=== PATIENT | female | born 1990 ===

== ENCOUNTER 2020-10-29 09:30 | Inpatient (IN) | payer BC ==
[2020-10-29] MEDS ORDERED: Lidocaine 1% 50 ML MDV INJECT PRN (11:47)
[2020-10-29] MEDS ORDERED: Nalbuphine 10 MG/1 ML Vial IVPUSH PRN (11:47)
[2020-10-29] MEDS ORDERED: Misoprostol 200 MCG Tab PO PRN (11:47)
[2020-10-29] MEDS ORDERED: Sodium Chloride 0.9% 2.5 ML Syringe FLUSH PRN (11:47)
[2020-10-29] MEDS ORDERED: Tranexamic Acid 1,000 MG in Sodium Chloride 0.9% 100 ML IV PRN (11:47)
[2020-10-29] MEDS ORDERED: Sodium Chloride 0.9% 10 ML SDV IV PRN (11:47)
[2020-10-29] MEDS ORDERED: Sodium Chloride 0.9% 10 ML Syringe FLUSH PRN (11:47)
[2020-10-29] MEDS ORDERED: Butorphanol 1 MG/ML SDV IVPUSH PRN (11:47)
[2020-10-29] MEDS ORDERED: Carboprost Tromethamine 250 MCG/1 ML Amp IM PRN (11:47)
[2020-10-29] MEDS ORDERED: Water For Irrigation,Sterile 1,000 ML Container IRR PRN (11:47)
[2020-10-29] MEDS ORDERED: Methylergonovine 0.2 MG/1 ML Amp IM PRN (11:47)
[2020-10-29] MEDS ORDERED: Lactated Ringers 1,000 ML IV SCH (12:00)
[2020-10-29] MEDS ORDERED: Oxytocin/0.9 % Sodium Chloride 30 UNIT/500 ML BAG IV SCH (12:00)
--- NOTE | 2020-10-29 14:46 | PCM.OPNOTE ---
- General Post-Op/Procedure Note Date of Surgery/Procedure: 10/29/20 Operative Procedure(s): /IP Findings: Viable male APGARs 8, 9 weight 6 lb 6 oz. Spontaneous delivery intact placenta with 3V cord. Meconium stained amniotic fluid Pre Op Diagnosis: 38/6 week IUP. Labor. Meconium stained amniotic fluid Post-Op Diagnosis: Same Primary Surgeon: Rosangela Lundy EBL in mLs: 300 Complications: none known Condition: Stable
[2020-10-29] MEDS ORDERED: Ibuprofen 400 MG Tab PO PRN (14:47)
[2020-10-29] MEDS ORDERED: Acetaminophen 500 MG Tab PO PRN ×2 (14:47)
[2020-10-29] MEDS ORDERED: Bisacodyl 10 MG Supp RECTAL PRN (14:47)
[2020-10-29] MEDS ORDERED: Benzocaine/Menthol 20%-0.5% Spray 78 GM Cannister TOP PRN (14:47)
[2020-10-29] MEDS ORDERED: Lanolin 100% Cream 7 GM Tube TOP PRN (14:47)
[2020-10-29] MEDS ORDERED: oxyCODONE 5 MG Tab PO PRN (14:47)
[2020-10-29] MEDS ORDERED: Ibuprofen 800 MG Tab PO PRN (14:47)
[2020-10-29] MEDS ORDERED: Aluminum Hydroxide/Magnesium Hydroxide/Simethicone Susp 30 ML Cup PO PRN (14:47)
[2020-10-29] MEDS ORDERED: Witch Hazel Medicated Pads 40/Jar TOP PRN (14:47)
[2020-10-29] MEDS ORDERED: Docusate Sodium 100 MG Cap PO PRN (14:47)
--- NOTE | 2020-10-30 08:45 | OR ---
SURGEON: Rosangela Lundy M.D. DATE OF PROCEDURE: 10/29/2020 PREOPERATIVE DIAGNOSES: 1. 39-6/7 weeks' intrauterine . 2. Active labor. 3. Meconium-stained amniotic fluid. POSTOPERATIVE DIAGNOSES: 1. 39-6/7 weeks' intrauterine . 2. Active labor. 3. Meconium-stained amniotic fluid. PROCEDURE: Spontaneous vaginal delivery, intact perineum. PRIMARY SURGEON: Rosangela Lundy M.D. ANESTHESIA: None. ESTIMATED BLOOD LOSS: 300 mL. COMPLICATIONS: None known. FINDINGS: Viable male, score of 8 at one minute and 9 at five minutes, weight of 6 pounds 6 ounces. Meconium-stained amniotic fluid. DISPOSITION: Infant to nursery, mom in LDRP, stable. PROCEDURE DETAILS: Lea is a 30-year-old G2, P0-1-0-1 at 39-6/7 weeks' gestational age, presents on the late morning of 10/29/2020 with regular contractions since 6 a.m. On initial examination, she was found to be 4 cm. Within the next 2 hours, progressed to 5 cm, 90% effaced, -2 station. She is group B beta strep negative, category 1 heart tones. Initial blood pressures were slightly elevated in the 130s to 140s over 80s to 90s. Therefore, the patient's labs were done and hemoglobin and platelets are normal. Trace protein noted with blood. The patient underwent amniotomy shortly before 1 p.m. Meconium-stained amniotic fluid was noted. At that time, she was found to be 5 cm, 90% effaced, -2. The patient continued to progress quickly to 9 cm within the next hour. I was called for delivery. Upon my arrival, patient was 9.5 cm and progressed to complete, felt the urge to push, began pushing efforts. The patient was placed in modified dorsal lithotomy position, was prepped and draped in the usual aseptic manner. Continued with pushing efforts, was able to deliver 's head atraumatically spontaneously, followed by anterior shoulder, posterior shoulder, remainder of body without difficulty. The 's oropharynx and nares were bulb suctioned. was handed off to his mother, attending nursery staff at her side. After a delay, cord was clamped x2 and cut. Cord arterial, cord venous, cord blood sampling was obtained. Light pressure was applied. The placenta was delivered spontaneously intact. Vigorous fundal uterine massage was then applied while 30 units of Pitocin was delivered in 500 mL of IV fluid. Upon inspection of cervix, vaginal sidewall, and perineum, these were found to be intact. Uterus remained firm. Sponge count and instrument count were correct. The patient remained in LDRP. We will monitor blood pressures closely. I think the majority of the elevated blood pressures were due to discomfort and pain. DANYEL / ANALY /[id number]
--- NOTE | 2020-10-30 08:51 | PCM.PNPP ---
- General Info Date of Service: 10/30/20 Functional Status: Reports: Pain Controlled, Tolerating Diet, Ambulating, Urinating - Review of Systems General: Reports: Fatigue. Denies: Fever, Weakness Pulmonary: Denies: Shortness of Breath Cardiovascular: Denies: Chest Pain, Palpitations, Lightheadedness Gastrointestinal: Denies: Abdominal Pain, Nausea, Vomiting Genitourinary: Reports: No Symptoms Musculoskeletal: Reports: No Symptoms Skin: Reports: No Symptoms Neurological: Reports: No Symptoms Psychiatric: Reports: No Symptoms - General Info Date of Service: 10/30/20 - Patient Data Vital Signs - Most Recent: Last Vital Signs Temp 36.6 C 10/30/20 04:45 Pulse 76 10/30/20 04:45 Resp 16 10/30/20 04:45 BP 125/68 10/30/20 04:45 Pulse Ox 95 10/30/20 04:45 Weight - Most Recent: 95.254 kg Lab Results - Last 24 Hours: Laboratory Results - last 24 hr 10/29/20 10/29/20 10/29/20 Range/Units 11:25 11:25 11:25 WBC 13.54 H (4.0-11.0) K/uL RBC 4.49 (4.30-5.90) M/uL Hgb 13.8 (12.0-16.0) g/dL Hct 41.3 (36.0-46.0) % MCV 92.0 (80.0-98.0) fL MCH 30.7 (27.0-32.0) pg MCHC 33.4 (31.0-37.0) g/dL RDW Std Deviation 44.7 (28.0-62.0) fl RDW Coeff of Elda 13 (11.0-15.0) % Plt Count 236 (150-400) K/uL MPV 10.80 (7.40-12.00) fL Nucleated RBC % 0.0 /100WBC Nucleated RBCs # 0 K/uL Cord ABG pH (7.18-7.38) Cord ABG Base Excess (-10--2) Cord VBG pH (7.25-7.45) Cord VBG Base Excess (-10--2) Urine Color Urine Appearance Urine pH (5.0-8.0) Ur Specific [place] (1.001-1.035) Urine Protein (NEGATIVE) mg/dL Urine Glucose (UA) (NEGATIVE) mg/dL Urine Ketones (NEGATIVE) mg/dL Urine Occult Blood (NEGATIVE) Urine Nitrite (NEGATIVE) Urine Bilirubin (NEGATIVE) Urine Urobilinogen (<2.0) EU/dL Ur Leukocyte Esterase (NEGATIVE) SARS-CoV-2 RNA (MARTHA) NEGATIVE (NEGATIVE) Blood Type B POSITIVE Antibody Screen NEGATIVE 10/29/20 10/29/20 10/30/20 Range/Units 12:00 14:25 05:59 WBC (4.0-11.0) K/uL RBC (4.30-5.90) M/uL Hgb 12.0 (12.0-16.0) g/dL Hct 36.2 (36.0-46.0) % MCV (80.0-98.0) fL MCH (27.0-32.0) pg MCHC (31.0-37.0) g/dL RDW Std Deviation (28.0-62.0) fl RDW Coeff of [place] (11.0-15.0) % Plt Count (150-400) K/uL MPV (7.40-12.00) fL Nucleated RBC % /100WBC Nucleated RBCs # K/uL Cord ABG pH 7.298 (7.18-7.38) Cord ABG Base Excess -2 (-10--2) Cord VBG pH 7.343 (7.25-7.45) Cord VBG Base Excess -4 (-10--2) Urine Color YELLOW Urine Appearance SLT CLOUDY Urine pH 6.5 (5.0-8.0) Ur Specific [place] 1.020 (1.001-1.035) Urine Protein TRACE H (NEGATIVE) mg/dL Urine Glucose (UA) NEGATIVE (NEGATIVE) mg/dL Urine Ketones NEGATIVE (NEGATIVE) mg/dL Urine Occult Blood LARGE H (NEGATIVE) Urine Nitrite NEGATIVE (NEGATIVE) Urine Bilirubin NEGATIVE (NEGATIVE) Urine Urobilinogen 0.2 (<2.0) EU/dL Ur Leukocyte Esterase MODERATE H (NEGATIVE) SARS-CoV-2 RNA (MARTHA) (NEGATIVE) Blood Type Antibody Screen Med Orders - Current: Current Medications Acetaminophen (Acetaminophen 500 Mg Tab) 500 mg PO Q4H PRN PRN Reason: Pain Acetaminophen (Acetaminophen 500 Mg Tab) 1,000 mg PO Q4H PRN PRN Reason: Pain Al Hydroxide/Mg Hydroxide (Aluminum Hydroxide/Magnesium Hydroxide/Simethicone Susp 30 Ml Cup) 30 ml PO Q8H PRN PRN Reason: Heartburn Benzocaine/Menthol (Benzocaine/Menthol 20%-0.5% [place] 78 Gm Cannister) 78 gm TOP ASDIRECTED PRN PRN Reason: Perineal Comfort Measure Bisacodyl (Bisacodyl 10 Mg Supp) 10 mg RECTAL ONETIME PRN PRN Reason: Constipation Docusate Sodium (Docusate Sodium 100 Mg Cap) 100 mg PO BID PRN PRN Reason: Constipation Emollient Ointment (Lanolin 100% Cream 7 Gm Tube) 0 gm TOP ASDIRECTED PRN PRN Reason: Sore Nipples Oxytocin/Sodium Chloride (Oxytocin 30 Unit/500 Ml-Ns) 30 unit in 500 mls @ 500 mls/hr IV TITRATE [facility] Last Admin: 10/29/20 14:27 Dose: 500 mls/hr Documented by: Tranexamic Acid 1,000 mg/ (Sodium Chloride) 110 mls @ 660 mls/hr IV ONETIME PRN PRN Reason: Bleeding Lactated Ringer's (Ringers, Lactated) 1,000 mls @ 150 mls/hr IV ASDIRECTED [facility] Last Admin: 10/29/20 13:35 Dose: 150 mls/hr Documented by: Ibuprofen (Ibuprofen 400 Mg Tab) 400 mg PO Q4H PRN PRN Reason: Pain Ibuprofen (Ibuprofen 800 Mg Tab) 800 mg PO Q6H PRN PRN Reason: Pain Methylergonovine Maleate (Methylergonovine 0.2 Mg/1 Ml Amp) 0.2 mg IM ASDIRECTED PRN PRN Reason: Post Hemorrhage Nalbuphine HCl (Nalbuphine 10 Mg/1 Ml Vial) 10 mg IVPUSH Q1H PRN PRN Reason: Pain (severe 7-10) Oxycodone HCl (Oxycodone 5 Mg Tab) 5 mg PO Q2H PRN PRN Reason: Pain Sodium Chloride (Sodium Chloride 0.9% 10 Ml Syringe) 10 ml FLUSH ASDIRECTED PRN PRN Reason: Keep Vein Open Sterile Water (Water For Irrigation,Sterile 1,000 Ml Container) 1,000 ml IRR ASDIRECTED PRN PRN Reason: delivery Witch Yadira (Witch Yadira Medicated Pads 40/Jar) 1 pad TOP ASDIRECTED PRN PRN Reason: comfort care Discontinued Medications Butorphanol Tartrate (Butorphanol 1 Mg/Ml Sdv) 1 mg IVPUSH Q1H PRN PRN Reason: Pain Carboprost Tromethamine (Carboprost Tromethamine 250 Mcg/1 Ml Amp) 250 mcg IM ASDIRECTED PRN PRN Reason: Post Hemorrhage Lidocaine HCl (Lidocaine 1% 50 Ml Mdv) 50 ml INJECT ONETIME PRN PRN Reason: Laceration repair Misoprostol (Misoprostol 200 Mcg Tab) 200 mcg PO ONETIME PRN PRN Reason: Post Hemorrhage Sodium Chloride (Sodium Chloride 0.9% 2.5 Ml Syringe) 2.5 ml FLUSH ASDIRECTED PRN PRN Reason: Keep Vein Open Sodium Chloride (Sodium Chloride 0.9% 10 Ml Sdv) 10 ml IV ASDIRECTED PRN PRN Reason: IV Use - Interaction Support Person: Significant Other - Recovery Exam Fundal Tone: Firm Fundal Level: 2 Fingerbreadths Below Umbilicus Fundal Placement: Midline Lochia Amount: Small Lochia Color: Rubra/Red Perineum Description: Intact, Minimal Bruising/Swelling Episiotomy/Laceration: None Bladder Status: Voiding Urinary Elimination: Voided - Exam General: Alert, Oriented Lungs: Normal Respiratory Effort Cardiovascular: Regular Rate, Regular Rhythm GI/Abdominal Exam: Soft, Non-Tender Extremities: Pedal Edema (trace). No: Aviva's Sign Skin: Warm, Dry, Intact Neurological: No New Focal Deficit Psy/Mental Status: Alert, Normal Affect, Normal Mood - Problem List & Annotations (1) Vaginal delivery SNOMED Code(s): 544262927 Code(s): O80 - ENCOUNTER FOR FULL-TERM UNCOMPLICATED DELIVERY Status: Acute Current Visit: No - Problem List Review Problem List Initiated/Reviewed/Updated: Yes - My Orders Last 24 Hours: My Active Orders 10/29/20 11:25 RPR (SYPHILIS SERO) W/ RFLX [REF] Routine 10/29/20 11:47 Patient Status [ADT] Routine May Shower [RC] ASDIRECTED Notify Provider [RC] PRN Up ad Rossi [RC] ASDIRECTED Vital Signs [RC] PER UNIT ROUTINE Methylergonovine [Methergine] 0.2 mg IM ASDIRECTED PRN Nalbuphine [Nubain] 10 mg IVPUSH Q1H PRN Sodium Chloride 0.9% [Saline Flush] 10 ml FLUSH ASDIRECTED PRN Tranexamic Acid [Cyklokapron] 1,000 mg Sodium Chloride 0.9% [Normal Saline] 100 ml IV ONETIME Water For Irrigation,Sterile [Sterile Water for Irrigation] 1,000 ml IRR ASDIRECTED PRN Peripheral IV Insertion Adult [OM.PC] Routine Resuscitation Status Routine 10/29/20 12:00 Lactated Ringers [Ringers, Lactated] 1,000 ml IV ASDIRECTED Oxytocin/0.9 % Sodium Chloride [Oxytocin 30 Unit/500 ML-NS] 30 unit in 500 ml IV TITRATE 10/29/20 14:47 Patient Status [ADT] Routine May Shower [RC] ASDIRECTED Notify Provider Vital Signs [RC] ASDIRECTED Vital Signs [RC] PER UNIT ROUTINE Acetaminophen [Tylenol Extra Strength] 1,000 mg PO Q4H PRN Acetaminophen [Tylenol Extra Strength] 500 mg PO Q4H PRN Alum Hydrox/Mag Hydrox/Simeth [Mag-Al Plus] 30 ml PO Q8H PRN Benzocaine/Menthol [Dermoplast Pain Relief 20%-0.5% [place]] 78 gm TOP ASDIRECTED PRN Docusate Sodium [Colace] 100 mg PO BID PRN Ibuprofen [Motrin] 400 mg PO Q4H PRN Ibuprofen [Motrin] 800 mg PO Q6H PRN Lanolin [Lansinoh HPA] See Dose Instructions TOP ASDIRECTED PRN bisacodyL [Dulcolax] 10 mg RECTAL ONETIME PRN oxyCODONE 5 mg PO Q2H PRN witch Yadira [Tucks] 1 pad TOP ASDIRECTED PRN Assess Lochia [WOMSER] Per Unit Routine Assess Uterine Involution [WOMSER] Per Unit Routine Peripheral IV Discontinue [OM.PC] Routine 10/29/20 14:48 Cooling Warming Measures [RC] ASDIRECTED Ice Therapy [OM.PC] Per Unit Routine Perineal Care [OM.PC] Per Unit Routine 10/29/20 Dinner Regular Diet [DIET] 10/30/20 08:49 Ready for Discharge [RC] PER UNIT ROUTINE - Assessment Assessment:: PPD 1 status post - Plan Plan:: VS are stable, BPs normal range. Patient feels well. Would like to go home later today. Discharge instructions reviewed. [facility]. Discharge to home this afternoon
== END 2020-10-30 17:09 | disposition home or self-care (01) | DRG 560 ==
LOC: MW.OBCHECK 09:30 → MW.OB 09:32 → MW.OBCHECK 13:00 → MW.OB 14:37 → OBSVTOIN 14:47 → MW.OB 18:52
PROVIDERS: ADMIT Obstetrics & Gynecology; ATTEND Obstetrics & Gynecology
PROC: 10E0XZZ Delivery of Products of Conception, External Approach (ICD-10-PCS; principal; 2020-10-29)
DX: O77.0 Labor and delivery complicated by meconium in amniotic fluid (principal); Z3A.39 39 weeks gestation of pregnancy; Z37.0 Single live birth; Z20.822 Contact with and (suspected) exposure to COVID-19
CPT/HCPCS: 36415; 59025; 59409; 81003; 82803; 85014; 85018; 85027; 86592; 86850; 86900; 86901; J2590; J7120; U0002